=== PATIENT | female | born 1930 | race Asian ===

== ENCOUNTER 2018-11-22 10:31 | Emergency (ER) | payer MEDICARE, MEDICAID ==
[~2018-11-22] VITALS: Ht 149.9 cm; Wt 49.0 kg
[2018-11-22 13:13] VITALS: BP 144/33
== END 2018-11-22 13:15 | disposition home or self-care (01) ==
LOC: ER 10:31
DX: I10 Essential (primary) hypertension (principal)
CPT/HCPCS: 99283